=== PATIENT | male | born 1950 | race Caucasian/White ===

== ENCOUNTER → 2018-05-11 | Outpatient (CLI) | payer MEDICARE ==
--- NOTE | 2018-05-11 12:06 | XR ---
EXAMINATION TYPE: XR chest 2V DATE OF EXAM: 05/11/2018 COMPARISON: None HISTORY: 68-year-old male chest cold, bronchospasm, shortness of breath TECHNIQUE: PA and lateral views FINDINGS: Heart normal size. Aorta and pulmonary vasculature within normal limits. No consolidation or pleural effusion. IMPRESSION: No acute cardiopulmonary process.
== END | disposition home or self-care (01) ==
LOC: RADXRYALE 11:08
PROVIDERS: ATTEND Internal Medicine
DX: J20.9 Acute bronchitis, unspecified (principal)
CPT/HCPCS: 71046

== ENCOUNTER → 2024-03-17 | Outpatient (CLI) | payer MEDICARE ==
--- NOTE | 2024-03-21 13:26 | MR ---
INDICATION: Patient age:Male; 74 years old; Reason for study: C71.2; [facility]. COMPARISON: Outside institution MRI brain 02/24/2024, 02/21/2024, MRI brain 02/01/2023, CT brain 011. TECHNIQUE: Multi planar, multi sequence imaging was performed through the brain. The patient was then given 8 cc of Gadobutrol intravenously and multi planar, T1 fat-saturation images were obtained. FINDINGS: The chavez-white junctions, ventricular system, basal cisterns appear unremarkable. Diffusion-weighted imaging shows no evidence of restricted diffusion to suggest acute/subacute infarct. Intracranial art erial flow voids are maintained. Midline structures show no abnormality. Postsurgical changes are obs erved within the right temporal lobe from removal of enhancing lesion. There is increased heterogenou s peripheral enhancement identified with corresponding T1 hyperintensity. This measures 4.2 x 2.8 cm (series 701, 78), previously measured 2.7 x 1.7 cm posteriorly. There is corresponding susceptibility artifact in this region related to hemosiderin deposition. Scattered regions of restricted diffusion identified within the surgical bed. There is vasogenic edema along the anterior inferior aspect and posterior superior aspect. This is decreased from prior exam. Improvement in previously seen soft tis alicia swelling. No new evidence of enhancement identified to suggest metastasis. Resolution of previously seen midline shift. Stable patchy areas of high T2/FLAIR signal intensity ar e seen within the periventricular white matter without corresponding enhancement. Favored to represen t nonspecific white matter changes likely related to chronic small vessel ischemic disease. The bone marrow signal is within normal limits. The paranasal sinuses and globes are unremarkable. IMPRESSION: Postsurgical changes from right temporal lobe mass resection with improvement in previously seen midl ine shift. There is increasing peripheral heterogenous enhancement within the surgical bed with hemor rhage identified. Decrease in surrounding vasogenic edema from prior exam. Enhancement may be posttre atment related however residual disease is not excluded. Continued follow-up is recommended. [facility], , 03/21/2024 1:23 PM
== END | disposition home or self-care (01) ==
LOC: RADMRIMAIN 12:55
PROVIDERS: ATTEND Radiology Radiation Oncology
DX: C71.2 Malignant neoplasm of temporal lobe (principal); G93.6 Cerebral edema; Z98.890 Other specified postprocedural states
CPT/HCPCS: 70553; A9585

== ENCOUNTER → 2024-06-27 | Outpatient (CLI) | payer MEDICARE ==
--- NOTE | 2024-06-28 12:46 | MR ---
EXAMINATION TYPE: MR brain wo/w con DATE OF EXAM: 06/27/2024 6:18 PM COMPARISON: 03/17/2024 CLINICAL INDICATION: Male, 74 years old with history of C71.2 MALIGNANT NEOPLASM OF TEMPORAL LOBE, Br ain cancer, Removed 02-20-2024, Check-up TECHNIQUE: Multiplanar, multiecho imaging on a 3.0 Daniella magnet is performed through the brain. Stud y is performed within 24 hours of arrival to the hospital.Multiplanar, multiecho imaging on a 3.0 Johanna la magnet is performed through the knee. IV Contrast: 9 mL Gadobutrol (None, if empty) FINDINGS: The craniovertebral junction is normal. The pituitary is normal. Diffusion-weighted imaging is performed. No abnormal hyperintensity is present to suggest an acute i ntracranial infarct or acute ischemic change. There is hyperintensity in postsurgical change in the proximal lateral right temporal lobe. This area currently measures 2.9 x 1.9 cm. Previous measurement 4.3 x 2.6 cm. This appears well-circumscribed. Following contrast administration there is peripheral enhancement. This is diminished from the prudencio rison study and may be postsurgical in nature. Posterior superior residual is not excluded and contin ued close monitoring is recommended. There is hyperintensity within the watershed region may be some chronic ischemic change or residual v asogenic edema. No increase in size is evident. Additional periventricular and centrum semiovale deep white matter hyperintensity is present on the i nversion recovery weighted sequences, likely on the basis of chronic white matter ischemic change. Ventricles and sulci are appropriate for the patient age. No significant extra-axial effect is eviden t. No hydrocephalus is evident. IMPRESSION: 1. There is some peripheral enhancement greater in the posterior superior portion of the resection si te. This can be related to postsurgical change. Residual tumor cannot be excluded. Findings have imp roved from the comparison with diminished enhancement and diminished size. Continued close follow-up is recommended. 2. There are some additional inversion recovery and T2 hyperintensities more likely related to chroni c periventricular deep white matter ischemic-type changes. [facility], , 06/28/2024 12:44 PM
== END | disposition home or self-care (01) ==
LOC: RADMRIMAIN 16:34
PROVIDERS: ATTEND Radiology Radiation Oncology
DX: C71.2 Malignant neoplasm of temporal lobe (principal); G93.89 Other specified disorders of brain
CPT/HCPCS: 70553; A9585

== ENCOUNTER 2024-08-03 15:10 | Observation (INO) | payer MEDICARE ==
--- NOTE | 2024-08-03 16:03 | ED ---
Altered Mental Status HPI - General Chief Complaint: Altered Mental Status Stated Complaint: stroke-like symptoms Time Seen by Provider: 08/03/24 15:15 Source: patient, EMS Mode of arrival: EMS - History of Present Illness Initial Comments: 74-year-old male who presents to the emergency department as a transfer from [facility]. Patient has a history of brain cancer with resection. He was on oral chemotherapy up until 1 week ago. Last radiation was in May. This morning the patient was in the shower when he had a fall. found him with significant weakness on the left side. This did resolve before he got to [facility]. Laboratory studies were completed and a CT was performed. Patient was then transferred to our facility for neurology and oncology. Patient reports he has had significant generalized weakness for the past week as well as room spinning sensation. Also reports to significant decrease in appetite. Patient had no injuries from the fall. Patient continues to have room spinning sensation at this time but denies any lateralizing weakness. - Related Data Home Medications Medication Instructions Recorded Confirmed Atorvastatin [Lipitor] 10 mg PO HS 07/19/24 07/19/24 carvediloL [Coreg] 6.25 mg PO BID 07/19/24 07/19/24 hydrALAZINE HCL [Apresoline] 50 mg PO BID 07/19/24 07/19/24 lisinopriL [Prinivil] 10 mg PO BID 07/19/24 07/19/24 Previous Rx's Medication Instructions Recorded Meclizine [Antivert] 25 mg PO TID PRN #20 tab 07/20/24 Allergies Allergy/AdvReac Type Severity Reaction Status Date / Time ondansetron [From Zofran] Allergy Rash/Hives Verified 08/03/24 15:20 Review of Systems ROS Statement: Those systems with pertinent positive or pertinent negative responses have been documented in the HPI. ROS Other: All systems not noted in ROS Statement are negative. Past Medical History Past Medical History: Cancer, Hypertension Additional Past Medical History / Comment(s): HX OF COLON POLYPS, RINGING IN EARS, brain ca, carpal tunnel bilat wrist History of Any Multi-Drug Resistant Organisms: None Reported Past Surgical History: No Surgical Hx Reported Additional Past Surgical History / Comment(s): COLONOSCOPY, tumor removal from brain Feb 2024, carpal tunnel surgery bilat Past Anesthesia/Blood Transfusion Reactions: No Reported Reaction Past Psychological History: No Psychological Hx Reported Smoking Status: Never smoker Past Alcohol Use History: Rare Past Drug Use History: None Reported - Past Family History Mother Family Medical History: Cancer Additional Family Medical History / Comment(s): BRAIN CA, AT 59 YRS OLD Brother(s) Family Medical History: Cancer Additional Family Medical History / Comment(s): PANCREATIC CA , AT 42 YRS OLD Sister(s) Family Medical History: Cancer Additional Family Medical History / Comment(s): BRAIN CA, AT 63 YRS OLD Course Vital Signs 08/03/24 08/03/24 15:12 15:57 Temperature 98.7 F Pulse Rate 79 Pulse Rate [ 78 Left Pulse Oximetery] Pulse Rate [ 84 Left Sitting Pulse Oximetery ] Pulse Rate [ 95 Right Standing Pulse Oximetery ] Respiratory 16 19 Rate Blood Pressure 166/96 Blood Pressure 146/96 [Right Arm Sitting] Blood Pressure 143/100 [Right Arm Standing] Blood Pressure 160/104 [Right Arm Supine] O2 Sat by Pulse 99 98 Oximetry Medical Decision Making - Medical Decision Making Was pt. sent in by a medical professional or institution (, PA, COMMUNITY PRODUCT SPECIALIST, urgent care, hospital, or detention...) When possible be specific @ -[No] Did you speak to anyone other than the patient for history (EMS, parent, family, police, friend...)? What history was obtained from this source @ -[No] Did you review nursing and triage notes (agree or disagree)? Why? @ -[I reviewed and agree with nursing and triage notes] Were old charts reviewed (outside hosp., previous admission, EMS record, old EKG, old radiological studies, urgent care reports/EKG's, detention records)? Report findings @ -Reviewed the laboratory studies from [facility] that were completed today. Patient had hemoglobin of 11.8. Hyperbilirubinemia at 1.6. CT brain demonstrate no acute bleed. Area of postoperative changes in the right temporal and parietal lobes. Patient was given aspirin and transferred via EMS Differential Diagnosis (chest pain, altered mental status, abdominal pain women, abdominal pain men, vaginal bleeding, weakness, fever, dyspnea, syncope, headache, dizziness, GI bleed, back pain, seizure, CVA, palpatations, mental health, musculoskeletal)? @ -[not applicable] EKG interpreted by me (3pts min.). @ -[As above] X-rays interpreted by me (1pt min.). @ -[None done] CT interpreted by me (1pt min.). @ -[None done] U/S interpreted by me (1pt. min.). @ -[None done] What testing was considered but not performed or refused? (CT, X-rays, U/S, labs)? Why? @ -[None] What meds were considered but not given or refused? Why? @ -[None] Did you discuss the management of the patient with other professionals (professionals i.e. , PA, COMMUNITY PRODUCT SPECIALIST, lab, RT, psych nurse, adoption social worker, tank crewmember, teacher, naval gunfire liaison officer, pillowcase sewer)? Give summary @ -[No] Was smoking cessation discussed for >3mins.? @ -[No] Was critical care preformed (if so, how long)? @ -[No] Were there social determinants of health that impacted care today? How? (Homelessness, low income, unemployed, alcoholism, drug addiction, transportation, low edu. Level, literacy, decrease access to med. care, residential, rehab)? @ -[No] Was there de-escalation of care discussed even if they declined (Discuss DNR or withdrawal of care, Hospice)? DNR status @ -[No] What co-morbidities impacted this encounter? (DM, HTN, Smoking, COPD, CAD, Cancer, CVA, ARF, Chemo, Hep., AIDS, mental health diagnosis, sleep apnea, morbid obesity)? @ -[None] Was patient admitted / discharged? Hospital course, mention meds given and route, prescriptions, significant lab abnormalities, going to OR and other pertinent info. @ -[hospital course] Undiagnosed new problem with uncertain prognosis? @ -[No] Drug Therapy requiring intensive monitoring for toxicity (Heparin, Nitro, Insulin, Cardizem)? @ -[No] Were any procedures done? @ -[No] Diagnosis/symptom? @ -[default] Acute, or Chronic, or Acute on Chronic? @ -[default] Uncomplicated (without systemic symptoms) or Complicated (systemic symptoms)? @ -[default] Side effects of treatment? @ -[No] Exacerbation, Progression, or Severe Exacerbation? @ -[No] Poses a threat to life or bodily function? How? (Chest pain, [place], [place], pneumonia, PE, COPD, DKA, ARF, appy, cholecystitis, CVA, Diverticulitis, Homicidal, Suicidal, threat to staff... and all critical care pts) @ -[No] Disposition Clinical Impression: Weakness, Near syncope Disposition: ADMITTED IP TO THIS [facility] Condition: Stable Is patient prescribed a controlled substance at d/c from ED?: No Referrals: Sheyla Troy MD [Primary Care Provider] - 1-2 days Time of Disposition: 16:04 Decision to Admit Reason: Admit from EC Decision Date: 08/03/24 Decision Time: 16:04
[2024-08-03] MEDS ORDERED: NALOXONE 0.4 MG/ML 1 ML VIAL IV PRN (16:05)
[2024-08-03] MEDS: SODIUM CHLORIDE 0.9% 1,000 ML IV SCH (16:33)
[2024-08-03] MEDS ORDERED: MECLIZINE 25 MG TAB PO PRN (17:33)
--- NOTE | 2024-08-03 18:25 | XR ---
EXAMINATION TYPE: XR chest 1V portable DATE OF EXAM: 08/03/2024 6:08 PM COMPARISON: Chest radiographs from 05/11/2018 CLINICAL INDICATION: Male, 74 years old with history of chf; [facility] TECHNIQUE: XR chest 1V portable Frontal view of the chest. FINDINGS: Lungs/Pleura: There is no evidence of pleural effusion, focal consolidation, or pneumothorax. Pulmonary vascularity: Unremarkable. Heart/mediastinum: Cardiomediastinal silhouette is unremarkable. Musculoskeletal: No acute osseous pathology. Other findings: None IMPRESSION: No acute cardiopulmonary disease/process. [facility], , 08/03/2024 6:23 PM
[2024-08-03] MEDS: hydrALAZINE HCL 50 MG TAB PO SCH (19:19)
[2024-08-03] MEDS: carvediloL 6.25 MG TAB PO SCH (19:19)
[2024-08-03 20:15] LABS: Influenza A Not Detected (Not Detectd); Influenza B Not Detected (Not Detectd); RSV Not Detected (Not Detectd)
[2024-08-03] MEDS: lisinopriL 10 MG TAB PO SCH (21:49)
--- NOTE | 2024-08-04 00:54 | HP ---
HISTORY AND PHYSICAL CHIEF COMPLAINT: Change in mental status and as well as dizziness, weakness. HISTORY OF PRESENT ILLNESS: This 74-year-old gentleman with a past medical history of multiple medical history including brain cancer, status post radiation and as well as surgery, hypertension, was feeling dizzy for the last couple of days. The patient went into the shower and the patient apparently had a fall and presyncopal event and the patient came to [facility]. The patient was evaluated at [facility] and referred to [facility] for further evaluation and treatment. There is no history of any fever, rigors, or chills at this time. PAST MEDICAL HISTORY: Hypertension, history of brain cancer with chemo radiation surgery. Rest of the history and chart is also reviewed. HOME MEDICATIONS: Reviewed include Prinivil. Dose reviewed, but otherwise not confirmed yet. ALLERGIES: Sulfa. FAMILY HISTORY: History of brain cancer. SOCIAL HISTORY: No history of smoking or alcohol. REVIEW OF SYSTEMS: 14-point review of systems negative except as mentioned earlier. PHYSICAL EXAMINATION: VITAL SIGNS: Pulse is 78, blood pressure noted NERVOUS SYSTEM: Moves all 4 limbs. Mild diffuse weakness. No focal deficit. SKIN: No ulcer, rash, bleeding. JOINTS: No active deforming arthropathy. LABORATORY DATA: Not available. Previous labs are reported normal. ASSESSMENT: 1. Syncope and weakness, possibly vasovagal, rule out acute transient ischemic attack. 2. History of brain tumor removal and chemotherapy. 3. Hypertension. 4. History of colonic polyps. 5. Multiple complex medical issues. RECOMMENDATION AND DISCUSSION: This 74-year-old gentleman presented with multiple complex medical issues. At this time, we will monitor the patient closely. Continue with current medications. Monitor blood pressure closely. Hematology/Oncology evaluation. Resume the home medications once they are confirmed. We will follow the patient closely. Prognosis guarded. Discussed with family at length. Further recommendations to follow. MMODL / IJN: [id number] / MTDD
[2024-08-04 08:21] LABS: Basophils # (A) 0.02 X 10*3/uL (0.00-0.10); Basophils % (A) 0.4 %; Eosinophils # (A) 0.03 X 10*3/uL (0.04-0.35); Eosinophils % (A) 0.7 %; HCT 33.3 % (39.6-50.0); HGB 11.3 g/dL (13.0-17.0); Lymphocytes % (A) 10.9 %; MCH 31.8 pg (27.0-32.0); MCHC 33.9 g/dL (32.0-37.0); MCV 93.8 FL (80.0-97.0); Mean Platelet Volume 9.6 FL (9.5-12.2); Monocytes # (A) 0.56 X 10*3/uL (0.20-1.00); Monocytes % (A) 12.2 %; NRBC Per 100 WBC 0 X 10*3/uL (0.00-0.01); Neutrophils # (A) 3.46 X 10*3/uL (1.80-7.70); Neutrophils % (A) 75.4 %; Platelet Count 92 X 10*3/uL (140-440); RBC 3.55 X 10*6/uL (4.40-5.60); RDW 13.7 % (11.5-14.5); WBC 4.59 X 10*3/uL (4.50-10.00)
[2024-08-04 09:06] LABS: BUN/Creat Ratio 16.07 Ratio (12.00-20.00); Blood Urea Nitrogen 22.5 mg/dL (9.0-27.0); Calcium 8.6 mg/dL (8.7-10.3); Carbon Dioxide 24.5 mmol/L (21.6-31.8); Chloride 104 mmol/L (96-109); Chol/HDL Ratio 3.99 Ratio; Glucose 127 mg/dL (70-110); LDL Cholesterol,Calculated 40.6 mg/dL (0.0-131.0); Potassium 3.9 mmol/L (3.5-5.5); Sodium 140 mmol/L (135-145)
--- NOTE | 2024-08-04 15:13 | P.CNNES ---
History of Present Illness Consult date: 08/04/24 Requesting physician: Marialuisa Parr Reason for Consult: transient left sided weakness, possible tia History of Present Illness: Patient is a 74-year-old right-handed male, with a recent diagnosis of GBM, was brought to the hospital by ambulance yesterday at 3:10 PM for syncope and possible TIA. Patient and his , and daughter were present, who provided with a history. Yesterday morning patient woke up and was feeling dizzy. He got into the shower but the dizziness continued. He got out of the shower and the dizziness became further worse. He wanted to get on the seat, but he fell. His heard a "caboom", and when she went in there, he was passed out, leaning onto the right side. There was droopiness of the left side of the face and left side was very weak. EMS was called. Patient states that he does remember getting dizziness, getting out of the shower, but does not remember falling and does not have much recollection of events until he was in the ambulance. No seizure-like activity was noted. No tongue biting or any convulsion. He was just limp. He also had some slurred speech, hesitating with the words. As per EMS flowsheet patient was transferred from [facility]. Patient came to the hospital initially for strokelike symptoms and left-sided weakness after a fall witnessed by in the shower. Patient did not lose consciousness, but did begin to have the stroke symptoms. CT head was negative for any stroke. Symptoms have resolved. EKG showed sinus rhythm. Patient's blood pressure was 169/93 pulse rate 85 respiration 14 saturation 97%. Blood test shows normal WBC hemoglobin 11.3, platelets 92. Electrolytes are normal, BUN 22 creatinine 1.4. Influenza, RSV and coronavirus PCR negative. Chest x-ray showed no acute cardiopulmonary process. Patient had an MRI of the brain performed 06/28/2024 for "malignant neoplasm of temporal lobe". It revealed some peripheral enhancement greater in the posterior superior portion of the resection site. This can be related to postsurgical change. Residual tumor cannot be excluded. Findings have improved from the comparison with diminished enhancement and diminished size. Continued close follow-up is recommended. Some chronic periventricular deep white matter ischemic type changes noted. Patient's home medications include Coreg, Lipitor 10 mg, hydralazine, lisinopril 10 mg twice daily and meclizine. Patient was diagnosed with brain tumor on 02/21/2024. Patient has presented with 6-month history of progressive left-sided weakness until he came to the ER and was found to have a brain mass. He was transferred to [facility], where he underwent craniotomy on 02/23/[address] Martinez. He was discharged home on 03/10/2024. Patient was placed on seizure medication for "seizure like activity" on the EEG, but he developed significant side effects with tiredness therefore it was discontinued couple days after starting it. He never had any clinical seizure. Patient was diagnosed with GBM grade 4. Patient was started on radiation and chemotherapy on 03/31/2024 for 6 weeks, that was completed on . Now he is on maintenance treatment with Temodar 5 days a week, skipping 3 weeks. He had received 1 full course of Temodar and the second course he was receiving when he was admitted. Patient has been having frequent dizziness, spinning and has to hold onto guardrail when walking. Patient's states that he walks like "penguin". He has been receiving Antivert for dizziness. No history of tobacco or alcohol use. He does have hypertension but no diabetes. Does not take any antiplatelet medication at home. At present patient states that he is feeling better. He went to the bathroom fine was not dizzy but still wobbly. Apparently patient had a similar presentat ion couple weeks ago for which she was admitted to [facility], and was discharged on a cardiac event monitor. Records from [facility]: Patient's examination at outside hospital revealed slurred speech, difficulty with word finding and significant verbal hesitancy, left facial weakness that spares the forehead but otherwise motor strength was normal. Symptoms completely resolved while he was in the ER. CT head showed no acute process. There is an area of postoperative change in the right temporal and parietal lobes from prior intervention. There is no midline shift or intra or extra-axial fluid collection of suspicion. Patient was started on aspirin 325 mg. EKG shows sinus rhythm with first-degree AV block. CT of the cervical spine showed no fracture. There are scattered degenerative changes. No subluxation. BUN 24, creatinine 1.3. Electrolytes are normal. Hepatic panel normal. CBC with WBC 5.75 and hemoglobin 11.8, platelets 112. Review of Systems All pertinent positive and negative review of systems mentioned HPI. Otherwise unremarkable. Past Medical History Past Medical History: Cancer, Hypertension Additional Past Medical History / Comment(s): HX OF COLON POLYPS, RINGING IN EARS, brain ca, carpal tunnel bilat wrist History of Any Multi-Drug Resistant Organisms: None Reported Past Surgical History: No Surgical Hx Reported Additional Past Surgical History / Comment(s): COLONOSCOPY, tumor removal from brain Feb 2024, carpal tunnel surgery bilat Past Anesthesia/Blood Transfusion Reactions: No Reported Reaction Past Psychological History: No Psychological Hx Reported Smoking Status: Never smoker Past Alcohol Use History: Rare Past Drug Use History: None Reported - Past Family History Mother Family Medical History: Cancer Additional Family Medical History / Comment(s): BRAIN CA, AT 59 YRS OLD Brother(s) Family Medical History: Cancer Additional Family Medical History / Comment(s): PANCREATIC CA , AT 42 YRS OLD Sister(s) Family Medical History: Cancer Additional Family Medical History / Comment(s): BRAIN CA, AT 63 YRS OLD Medications and Allergies Home Medications Medication Instructions Recorded Confirmed Type Atorvastatin [Lipitor] 10 mg PO HS 07/19/24 08/03/24 History carvediloL [Coreg] 6.25 mg PO BID 07/19/24 08/03/24 History hydrALAZINE HCL [Apresoline] 50 mg PO BID 07/19/24 08/03/24 History lisinopriL [Prinivil] 10 mg PO BID 07/19/24 08/03/24 History Meclizine [Antivert] 25 mg PO TID PRN #20 tab 07/20/24 08/03/24 Rx Allergies Allergy/AdvReac Type Severity Reaction Status Date / Time ondansetron [From Zofran] Allergy Rash/Hives Verified 08/03/24 19:22 Physical Examination - Vital Signs Vital Signs: Vital Signs Temp Pulse Pulse Pulse Pulse Resp BP 08/04/24 13:53 67 16 123/71 08/04/24 11:31 73 18 137/86 08/04/24 09:06 76 18 126/82 08/04/24 06:00 65 18 136/90 08/03/24 23:00 75 18 149/94 08/03/24 21:51 75 18 148/93 08/03/24 19:26 75 18 161/96 08/03/24 15:57 78 84 95 19 08/03/24 15:12 98.7 F 79 16 166/96 BP BP BP Pulse Ox 08/04/24 13:53 94 L 08/04/24 11:31 96 08/04/24 09:06 99 08/04/24 06:00 95 08/03/24 23:00 97 08/03/24 21:51 97 08/03/24 19:26 97 08/03/24 15:57 146/96 143/100 160/104 98 08/03/24 15:12 99 Intake and Output 08/03/24 08/04/24 08/04/24 22:59 06:59 14:59 Other: Weight 85.275 kg Patient is an elderly male, very pleasant, in no acute distress. Patient is alert awake oriented to time place and person. Speech and language functions are normal. Patient can name and repeat very well. No aphasia or dysarthria. Attention, concentration and fund of knowledge is adequate. On cranial nerve examination, pupils are equal, round and reacting to light, visual chin are full on confrontation, with no neglect on double simultaneous stimulation. Extraocular muscles are intact with no nystagmus. Face is symmetric, tongue protrudes to the midline. Palatal elevation and sensation normal, hearing and shoulder shrug normal, facial sensation normal. On muscle strength testing, there is no pronator drift and the strength is normal in arms and legs distally and proximally. Deep tendon reflexes are symmetric trace in the upper limbs, 1+ in the knees and plantars downgoing bilaterally. Sensory to touch is equal with no neglect on double simultaneous stimulation. Cerebellar function showed no ataxia for [id number] testing. No dysdiadochokinesia. No ataxia for [id number] testing on either side. Tone and bulk of muscles normal. Gait deferred.. On general examination, there is no carotid bruit or murmur, S1-S2 audible. Chest is clear on consultation. Abdomen is soft nontender. No organomegaly, bowel sounds present. Peripheral pulses are present. No peripheral edema. Results - Laboratory Findings CBC and BMP: 08/04/24 04:58 08/04/24 04:58 Abnormal Lab Findings: Abnormal Labs 08/04/24 08/04/24 04:58 04:58 RBC 3.55 L Hgb 11.3 L Hct 33.3 L Plt Count 92 L Lymphocytes # 0.50 L Eosinophils # 0.03 L Est GFR (CKD-EPI) 52 L Glucose 127 H Calcium 8.6 L HDL Cholesterol 22.80 L Assessment and Plan Assessment: * Syncopal spell followed by left sided deficits, that seems to have resolved. Patient does have loss of memory of the event. Differential diagnosis is between TIA versus focal seizure with postictal Ezra's paralysis. 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 Patient completed radiation and chemotherapy. * Decreased appetite, dizziness, weakness, likely from chemotherapy/brain tumor * Hypertension * Hyperlipidemia Plan: We will check EEG evaluate for any interictal epileptiform activity. 2-D echo 07/20/2024 revealed normal LV size and systolic function with EF 55 to 60%. Mildly increased septal wall thickness. Normal left atrial size. No MS. Aortic valve sclerosis. Carotid Doppler, rule out stenosis Patient recently underwent 7-day event monitoring from 07/20/2024 through 07/26/2024 showed total 3 days of monitoring. No significant bradycardia, sinus arrest sinus pauses or high-grade AV block noticed. First-degree AV block seen. Fasting a.m. lipid panel with cholesterol 91, LDL 40, HDL 22, triglycerides 138. Increase Lipitor 20 mg daily (on 10 mg daily at home). Hemoglobin A1c Optimize control of blood pressure. Start aspirin 81 mg daily. Patient has been started on Marinol for dizziness. Neuro checks every 4 hours. Telemetry monitoring rule out any arrhythmia PT, OT, speech therapy DVT prophylaxis: Heparin 5000 units subcu every 12 hours Neurology will continue to follow. Thank you for the consult. Time with Patient: Greater than 30
--- NOTE | 2024-08-04 15:26 | P.CONS ---
History of Present Illness - Reason for Consult Consult date: 08/04/24 glioblastoma Requesting physician: Marialuisa Parr - Chief Complaint near syncopy - History of Present Illness Mr. Gruber is a pleasant 74-year-old male patient of Dr. Langston who recently completed treatment for glioblastoma earlier this year. Patient presented with left-sided weakness, fatigue and a fall when he was seen in ED January 2024. He also reported 15 lb unintentional wt loss in [address] head showed a large right temporal lobe mass, transferred to [facility], MRI of the brain 02/21/2024 showed large ring-enhancing mass with central necrosis in the right temporal lobe causing mass effect and elevation of the sylvian fissure. CT CAP 02/20/2024 was negative for metastases. 02/23/2024 he underwent craniotomy and resection of the mass. 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 MGMT promoter methylation was negative. He recovered from surgery well. He has started Temodar with concurrent radiation in early March, which she tolerated very well. He completed treatment 05/19/2024. Repeat brain MRI 06/23/2024 showed improvement, postop and postradiation changes. He was given a short course of steroids by radiation oncology which she completed. Patient came to the emergency room because he became dizzy and fell while turning around after getting out of the shower. Patient denies syncope. He has not been eating real well, appetite is overall poor, denies any neurological symptoms such as changes in vision, vision loss, difficulty swallowing, he does have some hearing loss but, this is not new or worse, no numbness or tingling, unilateral weakness, no seizure-like activity. Denies fevers, nausea, vomiting, chest pain, shortness of breath, palpitations, abdominal pain, pain with urination, he reports he is constipated. Review of Systems 14 point review of systems is negative except as stated in HPI Past Medical History Past Medical History: Cancer, Hypertension Additional Past Medical History / Comment(s): HX OF COLON POLYPS, RINGING IN EARS, brain ca, carpal tunnel bilat wrist History of Any Multi-Drug Resistant Organisms: None Reported Past Surgical History: No Surgical Hx Reported Additional Past Surgical History / Comment(s): COLONOSCOPY, tumor removal from brain Feb 2024, carpal tunnel surgery bilat Past Anesthesia/Blood Transfusion Reactions: No Reported Reaction Past Psychological History: No Psychological Hx Reported Smoking Status: Never smoker Past Alcohol Use History: Rare Past Drug Use History: None Reported - Past Family History Mother Family Medical History: Cancer Additional Family Medical History / Comment(s): BRAIN CA, AT 59 YRS OLD Brother(s) Family Medical History: Cancer Additional Family Medical History / Comment(s): PANCREATIC CA , AT 42 YRS OLD Sister(s) Family Medical History: Cancer Additional Family Medical History / Comment(s): BRAIN CA, AT 63 YRS OLD Medications and Allergies Home Medications Medication Instructions Recorded Confirmed Type Atorvastatin [Lipitor] 10 mg PO HS 07/19/24 08/03/24 History carvediloL [Coreg] 6.25 mg PO BID 07/19/24 08/03/24 History hydrALAZINE HCL [Apresoline] 50 mg PO BID 07/19/24 08/03/24 History lisinopriL [Prinivil] 10 mg PO BID 07/19/24 08/03/24 History Meclizine [Antivert] 25 mg PO TID PRN #20 tab 07/20/24 08/03/24 Rx Allergies Allergy/AdvReac Type Severity Reaction Status Date / Time ondansetron [From Zofran] Allergy Rash/Hives Verified 08/03/24 19:22 Physical Exam Vitals: Vital Signs Temp Pulse Pulse Pulse Pulse Resp BP 08/04/24 09:06 76 18 126/82 08/04/24 06:00 65 18 136/90 08/03/24 23:00 75 18 149/94 08/03/24 21:51 75 18 148/93 08/03/24 19:26 75 18 161/96 08/03/24 15:57 78 84 95 19 08/03/24 15:12 98.7 F 79 16 166/96 BP BP BP Pulse Ox 08/04/24 09:06 99 08/04/24 06:00 95 08/03/24 23:00 97 08/03/24 21:51 97 08/03/24 19:26 97 08/03/24 15:57 146/96 143/100 160/104 98 08/03/24 15:12 99 Intake and Output 08/03/24 08/04/24 08/04/24 22:59 06:59 14:59 Other: Weight 85.275 kg Results CBC & Chem 7: 08/04/24 04:58 08/04/24 04:58 Labs: Abnormal Lab Results - Last 24 Hours (Table) 08/04/24 08/04/24 Range/Units 04:58 04:58 RBC 3.55 L (4.40-5.60) X 10*6/uL Hgb 11.3 L (13.0-17.0) g/dL Hct 33.3 L (39.6-50.0) % Plt Count 92 L (140-440) X 10*3/uL Lymphocytes # 0.50 L (0.90-5.00) X 10*3/uL Eosinophils # 0.03 L (0.04-0.35) X 10*3/uL Est GFR (CKD-EPI) 52 L (>=60) Glucose 127 H (70-110) mg/dL Calcium 8.6 L (8.7-10.3) mg/dL HDL Cholesterol 22.80 L (40.00-60.00) mg/dL Chest x-ray: report reviewed Assessment and Plan (1) Dizziness Current Visit: Yes Status: Acute Priority: High Code(s): R42 - DIZZINESS AND GIDDINESS SNOMED Code(s): 036366720 (2) Near syncope Current Visit: Yes Status: Acute Priority: High Code(s): R55 - SYNCOPE AND COLLAPSE SNOMED Code(s): 080708230 (3) Glioblastoma Current Visit: Yes Status: Chronic Priority: Medium Code(s): C71.9 - MALIGNANT NEOPLASM OF BRAIN, UNSPECIFIED SNOMED Code(s): 515960661 (4) Constipation Current Visit: Yes Status: Acute Priority: Medium Code(s): K59.00 - CONSTIPATION, UNSPECIFIED SNOMED Code(s): 43613209 (5) Poor appetite Current Visit: Yes Status: Acute Priority: Medium Code(s): R63.0 - ANOREXIA SNOMED Code(s): 00645809 Plan: Dizziness - Patient is a surgical, chemo and radiation treated glioblastoma. Most recent imaging 06/23/2024 showed postsurgery and treatment changes, no evidence of dis ease. Patient has no other symptoms. -Pending neurological evaluation and recommendations at this time - If symptoms persist may consider steroids, if appropriate Glioblastoma - Diagnosis, treatment and follow-up as reported in HPI. -Pending Neurology evaluation and recommendations. -May need brain imaging. -Consider Rad Onc consult if symptoms persist or progress. Constipation - Patient has had issues with constipation in the past. - Will order MiraLAX x 1, senna twice a day scheduled Poor appetite - Marinol has been ordered twice a day. We will see how patient tolerates it and hip he gets an appetite When seen, patient seems relatively stable. We will continue to follow along
--- NOTE | 2024-08-04 15:37 | US ---
EXAMINATION TYPE: US carotid duplex BILAT DATE OF EXAM: 08/04/2024 COMPARISON: NONE CLINICAL INDICATION: Male, 74 years old with history of Syncope; TECHNIQUE: Grayscale, color Doppler and spectral Doppler evaluation of the bilateral carotid systems and vertebral arteries. Indirect Doppler criteria was utilized. FINDINGS: EXAM MEASUREMENTS: RIGHT: Peak Systolic Velocity (PSV) cm/sec ----- Right CCA: 64.2 ----- Right ICA: 73.8 ----- Right ECA: 78.2 ICA/CCA ratio: 1.1 RIGHT: End Diastole cm/sec ----- Right CCA: 16.2 ----- Right ICA: 25.0 ----- Right ECA: 5.8 LEFT: Peak Systolic Velocity (PSV) cm/sec ----- Left CCA: 70.3 ----- Left ICA: 77.2 ----- Left ECA: 64.4 ICA/CCA ratio: 1.1 LEFT: End Diastole cm/sec ----- Left CCA: 12.7 ----- Left ICA: 23.0 ----- Left ECA: 7.3 VERTEBRALS (direction of flow): Right Vertebral: Antegrade Left Vertebral: Antegrade Rhythm: Normal IMPRESSION: Right: Less than 50% stenosis of the carotid bifurcation. Left: Less than 50% stenosis of the carotid bifurcation. Criteria for Assigning % of Stenosis / Diameter reduction (Estimation based on the indirect measurements of the internal carotid artery velocities (ICA PSV). 1. Normal (no stenosis)=ICA PSV < 180 cm/s: ratio < 2.0: ICA EDV<40 cm/s. 2. Less than 50% stenosis=ICA PSV < 180 cm/s: ratio < 2.0: ICA EDV<40 cm/s. 3. 50 to 69% stenosis=ICA PSV of 180 to 230 cm/s: ration 2.0 ? 4.0: ICA EDV 40-100 cm/s. PSV 125-180 cm/sec and ICA/CCA PSV Ratio ? 2.0 is also consistent with 50-69% stenosis 4. Greater than 70% stenosis to near occlusion= ICA PSV > 230 cm/s: ratio > 4.0: ICA EDV > 100 cm/s. 5. Near occlusion= ICA PSV velocities may be low or undetectable: variable ratio and ICA EDV. 6. Total occlusion=unable to detect flow. [facility], , 08/04/2024 3:34 PM
[2024-08-04] MEDS: polyethylene glycoL 3350 17 GM POWD.PACK PO STA (16:00)
[2024-08-04] MEDS: ASPIRIN 81 MG PO SCH (16:02)
[2024-08-04] MEDS: METOCLOPRAMIDE 5 MG TAB PO SCH (16:52)
[2024-08-04] MEDS: droNABinol 2.5 MG CAP PO SCH (16:53)
[2024-08-04] MEDS: DOCUSATE 100 MG CAP PO SCH (16:53)
--- NOTE | 2024-08-04 17:11 | PN ---
PROGRESS NOTE DATE OF SERVICE: 08/04/2024 SUBJECTIVE: This is a 74-year-old gentleman admitted with change in mental status, dizziness, and weakness, is being closely monitored. No chest pain. No palpitation. Neurology evaluation is underway. OBJECTIVE: VITAL SIGNS: Pulse is 73, blood pressure 137/83, and respirations 18. CHEST: Clear to auscultation. CARDIOVASCULAR: S1, S2. ABDOMEN: Soft. NERVOUS SYSTEM: No focal deficit. No nystagmus. LABORATORY DATA: Reviewed. ASSESSMENT: 1. Syncope, weakness, possibly vasovagal, rule out transient ischemic attack. 2. History of brain tumor removal and chemotherapy. 3. Hypertension. 4. History of colonic polyps. 5. Multiple complex medical issues. RECOMMENDATIONS AND DISCUSSION: Recommend to continue current management and continue symptomatic treatment. Otherwise I recommend Neurology Oncology evaluations. Continue to monitor orthostatic vitals. Further recommendations to follow. MMODL / IJN: [id number] /
[2024-08-04] MEDS: SENNOSIDES-DOCUSATE SODIUM 1 EACH TAB PO SCH (21:12)
[2024-08-04] MEDS: HEPARIN SODIUM,PORCINE 5,000 UNIT/ML 1 ML VIAL SQ SCH (21:13)
[2024-08-04] MEDS: PANTOPRAZOLE 40 MG/10 ML VIAL IVP SCH (21:13)
[2024-08-05 08:20] LABS: BUN/Creat Ratio 15.15 Ratio (12.00-20.00); Blood Urea Nitrogen 19.7 mg/dL (9.0-27.0); Calcium 8.5 mg/dL (8.7-10.3); Carbon Dioxide 25.1 mmol/L (21.6-31.8); Chloride 108 mmol/L (96-109); Glucose 126 mg/dL (70-110); Potassium 3.8 mmol/L (3.5-5.5); Sodium 145 mmol/L (135-145)
[2024-08-05 08:53] LABS: Basophils # (A) 0.02 X 10*3/uL (0.00-0.10); Basophils % (A) 0.5 %; Eosinophils # (A) 0.04 X 10*3/uL (0.04-0.35); Eosinophils % (A) 1.1 %; HCT 33.9 % (39.6-50.0); HGB 11.4 g/dL (13.0-17.0); Lymphocytes # (A) 0.53 X 10*3/uL (0.90-5.00); Lymphocytes % (A) 14.3 %; MCH 31.7 pg (27.0-32.0); MCHC 33.6 g/dL (32.0-37.0); MCV 94.2 FL (80.0-97.0); Mean Platelet Volume 10.2 FL (9.5-12.2); Monocytes # (A) 0.46 X 10*3/uL (0.20-1.00); Monocytes % (A) 12.4 %; NRBC Per 100 WBC 0 X 10*3/uL (0.00-0.01); Neutrophils # (A) 2.65 X 10*3/uL (1.80-7.70); Neutrophils % (A) 71.4 %; Platelet Count 101 X 10*3/uL (140-440); RDW 13.8 % (11.5-14.5); WBC 3.71 X 10*3/uL (4.50-10.00)
--- NOTE | 2024-08-05 12:36 | P.PN ---
Subjective Progress Note Date: 08/05/24 Patient states he is doing much better. 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 His appetite is improved. No new concerns. Objective - Vital Signs Vital signs: Vital Signs Temp 97.9 F 08/05/24 07:00 Pulse 71 08/05/24 07:00 Resp 16 08/05/24 07:00 BP 150/82 08/05/24 07:00 Pulse Ox 100 08/05/24 07:00 FiO2 Intake & Output 08/04/24 08/05/24 08/05/24 18:59 06:59 18:59 Intake Total 222 Balance 222 Weight 85.275 kg Intake: Oral 222 Other: Voiding Method Toilet # Voids 2 # Bowel Movements 1 - Exam Examination is nonfocal. Unchanged. - Labs CBC & Chem 7: 08/05/24 05:02 08/05/24 05:02 Labs: Abnormal Lab Results - Last 24 Hours (Table) 08/05/24 08/05/24 Range/Units 05:02 05:02 WBC 3.71 L (4.50-10.00) X 10*3/uL RBC 3.60 L (4.40-5.60) X 10*6/uL Hgb 11.4 L (13.0-17.0) g/dL Hct 33.9 L (39.6-50.0) % Plt Count 101 L (140-440) X 10*3/uL Lymphocytes # 0.53 L (0.90-5.00) X 10*3/uL Est GFR (CKD-EPI) 57 L (>=60) Glucose 126 H (70-110) mg/dL Calcium 8.5 L (8.7-10.3) mg/dL Assessment and Plan Assessment: * Syncopal spell followed by left sided deficits, that seems to have resolved. Patient does have loss of memory of the event. Probable vasovagal syncope. Probable TIA. Seizure appears less likely, as there was no postictal confusion, no convulsive activity, tongue bite or loss of control of urine, and patient had significant presyncopal symptoms before passing out. 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 Patient completed radiation and chemotherapy. * Decreased appetite, dizziness, weakness, likely from chemotherapy/brain tumor * Hypertension * Hyperlipidemia Plan: EEG was performed, which was abnormal due to amplitude asymmetry with higher amplitude and slow frequency activity over the right temporal region, likely related to breach rhythm from craniotomy defect. No obvious epileptiform activity was seen. Patient states his dizziness is much improved. It appears patient probably had vasovagal syncope from dehydration, dizziness. We will hold off on antiepileptic medication, as EEG did not reveal any obvious epileptiform activity. However with the type of brain tumor, he is high risk for developing seizures. If he has any obvious seizure, then I would have low threshold to start him on antiepileptic medication. 2-D echo 07/20/2024 revealed normal LV size and systolic function with EF 55 to 60%. Mildly increased septal wall thickness. Normal left atrial size. No MS. Aortic valve sclerosis. Carotid Doppler was normal, with no significant stenosis in the ICA. Antegrade flow in both vertebral arteries. Patient recently underwent 7-day event monitoring from 07/20/2024 through 5 showed total 3 days of monitoring. No significant bradycardia, sinus arrest sinus pauses or high-grade AV block noticed. First-degree AV block seen. Fasting a.m. lipid panel with cholesterol 91, LDL 40, HDL 22, triglycerides 138. Increase Lipitor 20 mg daily (on 10 mg daily at home). Hemoglobin A1c 5.5 Optimize control of blood pressure. Start aspirin 81 mg daily. Patient has been started on Marinol for dizziness. Neuro checks every 4 hours. Orthostatics checked initially was positive, but now the most recent one is nor mal. Telemetry monitoring rule out any arrhythmia PT, OT, speech therapy DVT prophylaxis: Heparin 5000 units subcu every 12 hours Discussed with patient's as well. Neurologically clear for discharge.
--- NOTE | 2024-08-05 12:57 | EEG ---
DATE OF SERVICE: 08/05/2024 ELECTROENCEPHALOGRAM REPORT PREAMBLE: This is a 74-year-old male with dizziness, syncope. 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 EEG FINDINGS: This is a 21-channel digital EEG recorded with video component, utilizing 10/20 international system with referential and bipolar montages. Background consists of well developed, well regulated moderate voltage activity in 8-9 hertz alpha. Background is posterior dominant and reactive to eye opening and closing. There is presence of slight amplitude asymmetry with relatively higher amplitude activity noted in the right temporal region, consistent with breach rhythm from previous craniotomy. Some sharply contoured waves were seen on the right temporal region, but did not appear epileptiform. No electrographic seizure was recorded. Different stages of sleep were not seen. Photic driving response was not seen. IMPRESSION: This is an abnormal EEG due to presence of: 1. Amplitude asymmetry with higher amplitude and focal slowing over the right temporal region, consistent with breach rhythm due to previous craniotomy. 2. No definitive epileptiform activity was seen. Consider prolonged EEG, if your suspicion for seizures is high. MMODL / IJN: [id number] / RITA
[2024-08-05 15:02] VITALS: BP 162/82; PULSE 68; RESP 15; TEMP 97.8
--- NOTE | 2024-08-05 18:58 | P.PN ---
Subjective Progress Note Date: 08/05/24 No acute events overnight. Pt reporting he is feeling improved, dizziness resolved. Anxious to be discharged home. EEG performed this morning Objective - Vital Signs Vital signs: Vital Signs Temp 97.9 F 08/05/24 07:00 Pulse 71 08/05/24 07:00 Resp 16 08/05/24 07:00 BP 150/82 08/05/24 07:00 Pulse Ox 100 08/05/24 07:00 FiO2 Intake & Output 08/04/24 08/05/24 08/05/24 18:59 06:59 18:59 Intake Total 222 Balance 222 Weight 85.275 kg Intake: Oral 222 Other: Voiding Method Toilet # Voids 2 # Bowel Movements 1 - Constitutional General appearance: Present: average body habitus, no acute distress - EENT Eyes: Present: anicteric sclerae, EOMI ENT: Present: hearing grossly normal - Respiratory Details: breathing is even and unlabored - Cardiovascular Details: skin warm and dry - Gastrointestinal General gastrointestinal: Present: soft. Absent: tenderness - Integumentary Integumentary: Absent: cyanotic, jaundiced - Psychiatric Psychiatric: Present: A&O x's 3 - Labs CBC & Chem 7: 08/05/24 05:02 08/05/24 05:02 Labs: Abnormal Lab Results - Last 24 Hours (Table) 08/05/24 08/05/24 Range/Units 05:02 05:02 WBC 3.71 L (4.50-10.00) X 10*3/uL RBC 3.60 L (4.40-5.60) X 10*6/uL Hgb 11.4 L (13.0-17.0) g/dL Hct 33.9 L (39.6-50.0) % Plt Count 101 L (140-440) X 10*3/uL Lymphocytes # 0.53 L (0.90-5.00) X 10*3/uL Est GFR (CKD-EPI) 57 L (>=60) Glucose 126 H (70-110) mg/dL Calcium 8.5 L (8.7-10.3) mg/dL Assessment and Plan (1) Bradycardia Current Visit: No Status: Acute Code(s): R00.1 - BRADYCARDIA, UNSPECIFIED SNOMED Code(s): 36318290 (2) Dizziness Current Visit: Yes Status: Acute Priority: High Code(s): R42 - DIZZINESS AND GIDDINESS SNOMED Code(s): 389805686 (3) Glioblastoma Current Visit: Yes Status: Chronic Priority: Medium Code(s): C71.9 - MALIGNANT NEOPLASM OF BRAIN, UNSPECIFIED SNOMED Code(s): 226742126 Plan: Dizziness - Patient is a surgical, chemo and radiation treated glioblastoma. Most recent imaging 06/23/2024 showed postsurgery and treatment changes, no evidence of disease. Patient has no other symptoms. - Neurology following. EEG pending - Carotid doppler showing less than 50% stenosis in bilateral carotids - Dizziness now resolved Glioblastoma - Diagnosis, treatment and follow-up as reported in HPI. -Pending Neurology evaluation and recommendations. -If sx persist, may need brain imaging and rad onc eval -Continue in clinic f/u Patient cleared for discharge form oncology standpoint, once cleared by admi tting team and other consulted medical specialities
[2024-08-05] MEDS ORDERED: ATORVASTATIN 20 MG TAB PO SCH (21:00)
--- NOTE | 2024-08-05 21:34 | P.DS ---
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 Was transferred from [facility] for possible TIA and review of his history of cancer Patient was found to have syncope with left-sided weakness which are currently resolved. Evaluated by neurology suspected to have TIA versus seizure. He was started on aspirin 81 mg and Lipitor dose increased then up to 20 mg. However he was not started on antiseizure medication because there was no tonic-clonic activity no postictal no tongue biting or urine or bowel incontinence as per neurologist. However patient at risk of seizure given his brain tumor. Patient currently symptoms improved and no headache no dizziness no other new complaints. He ate his meal well. His left-sided weakness completely resolved he is overall doing well. He has mild postural lightheadedness but goes away momentarily and patient can walk, get up and go test is normal. Patient feels back to his baseline and he wants to go home Patient was cleared for discharge by neurologist. Problems and management plan were discussed with the patient and he verbalized understanding and acceptance Patient was found stable and can be discharged home in guarded prognosis however he needs follow-up as an outpatient. Patient was instructed to follow up with PCP Dr. Troy within one week and patient agrees Patient was instructed to follow-up with a neurologist in 1 to 2 weeks and he agrees and with his oncologist in 3 days he already has appointment with Dr. Ni at which he agrees with Physical exam Gen: patient is a AAOx3, no distress CVS: S1-S2, RRR, no murmur Lungs: B/L CTA, no wheezing Abdomen: soft, no distention, no tenderness, positive bowel sounds Extremity: no leg edema or induration Time spent more than 35 minutes Patient Condition at Discharge: Stable Plan - Discharge Summary New Discharge Prescriptions: New RX: Aspirin 81 mg PO DAILY #30 tab RX: Docusate [Colace] 100 mg PO BID PRN 10 Days #20 cap PRN Reason: Constipation droNABinol [Marinol] 2.5 mg PO AC-BID 7 Days #14 cap carvediloL [Coreg] 12.5 mg PO BID #60 tablet RX: Atorvastatin [Lipitor] 20 mg PO HS #30 tab RX: Metoclopramide [Reglan] 5 mg PO AC-TID PRN 10 Days #30 tab PRN Reason: Nausea And Vomiting Continue RX: carvediloL [Coreg] 6.25 mg PO BID RX: hydrALAZINE HCL [Apresoline] 50 mg PO BID RX: lisinopriL [Prinivil] 10 mg PO BID RX: Meclizine [Antivert] 25 mg PO TID PRN #20 tab PRN Reason: Vertigo Discontinued RX: Atorvastatin [Lipitor] 10 mg PO HS Discharge Medication List RX: carvediloL [Coreg] 6.25 mg PO BID 07/19/24 [History] RX: hydrALAZINE HCL [Apresoline] 50 mg PO BID 07/19/24 [History] RX: lisinopriL [Prinivil] 10 mg PO BID 07/19/24 [History] RX: Meclizine [Antivert] 25 mg PO TID PRN #20 tab 07/20/24 [Rx] RX: Aspirin 81 mg PO DAILY #30 tab 08/05/24 [Rx] RX: Atorvastatin [Lipitor] 20 mg PO HS #30 tab 08/05/24 [Rx] RX: Docusate [Colace] 100 mg PO BID PRN 10 Days #20 cap 08/05/24 [Rx] RX: Metoclopramide [Reglan] 5 mg PO AC-TID PRN 10 Days #30 tab 08/05/24 [Rx] carvediloL [Coreg] 12.5 mg PO BID #60 tablet 08/05/24 [Rx] droNABinol [Marinol] 2.5 mg PO AC-BID 7 Days #14 cap 08/05/24 [Rx] Follow up Appointment(s)/Referral(s): Sheyla Troy MD [Primary Care Provider] - 1-2 days Dolores Langston MD [STAFF PHYSICIAN] - 08/08/24 9:15 am Christopher Myrick MD [Medical Doctor] - 2 Weeks (neurologist ) Activity/Diet/Wound Care/Special Instructions: heart healthy diet activity is restricted till you see your doctor Discharge Disposition: HOME SELF-CARE
== END 2024-08-05 18:19 | disposition home or self-care (01) ==
LOC: EC 15:10 → 6NMEDSUR 16:12
PROVIDERS: ADMIT Hospitalist; ATTEND Hospitalist
DX: R55 Syncope and collapse (principal); R53.1 Weakness; R42 Dizziness and giddiness; R00.1 Bradycardia, unspecified; R47.81 Slurred speech; R29.810 Facial weakness; R63.0 Anorexia; K59.00 Constipation, unspecified; E78.5 Hyperlipidemia, unspecified; I10 Essential (primary) hypertension; I44.0 Atrioventricular block, first degree; Z92.21 Personal history of antineoplastic chemotherapy; Z92.3 Personal history of irradiation; Z86.0100 Personal history of colon polyps, unspecified; Z85.841 Personal history of malignant neoplasm of brain; W18.2XXA Fall in (into) shower or empty bathtub, initial encounter; Z79.899 Other long term (current) drug therapy; Z88.8 Allergy status to other drugs, medicaments and biological substances; Z88.2 Allergy status to sulfonamides
CPT/HCPCS: 96372 ×2; 96374 ×2; 99285; 95816; 97161; 80061; 80048 ×2; 85025 ×2; 83036; 87636; 71045; 93880; G0378 ×3; J1644 ×2; Q0167 ×2; J2470 ×2